=== PATIENT | male | born 1930 | race Caucasian/White ===

== ENCOUNTER 2017-04-14 23:12 | Emergency (ER) | payer OTHER ==
[2017-04-14 23:17] VITALS: BP 201/102; PULSE 111; TEMP 98.7; BMI 22.3
--- NOTE | 2017-04-14 23:54 | PDOC ---
History of Present Illness - General History Source: Patient, Family Exam Limitations: No Limitations - History of Present Illness Initial Comments: 04/14/17 23:58 The patient is an 86 year old male with no known medical history who presents to the ED with complaints of dysuria and hematuria that began yesterday. As per patient's family member, the patient had been experiencing hematuria a few months prior when he was advised to wear a diaper. However, the patient kept his diaper on for five days straight. It was only yesterday in which he expressed to his family member that he wasn't feeling well. He denies any fever or chills. The patient denies any urgency, hesitancy, frequency, or other urinary symptoms. The patient's family member states that the patient's blood pressure typically gets elevated when he sees doctors. The patient denies any chest pain or shortness of breath. <Tierra Gerber - Last Filed: 04/14/17 23:58> <Zaria Montes - Last Filed: 04/15/17 04:20> - General Chief Complaint: Urinary Problem Stated Complaint: BLOOD IN URINE/PAIN Time Seen by Provider: 04/14/17 23:24 Past History <Tierra Gerber - Last Filed: 04/14/17 23:58> - Past Medical History Other medical history: denies - Surgical History Abdominal Surgery: Yes (hernia) - Psycho/Social/Smoking Cessation Hx Suicidal Ideation: No Smoking History: Never smoked <Zaria Montes - Last Filed: 04/15/17 04:20> - Past Medical History Allergies/Adverse Reactions: Allergies Allergy/AdvReac Type Severity Reaction Status Date / Time No Known Allergies Allergy Verified 04/14/17 23:17 Review of Systems - Review of Systems Able to Perform ROS?: Yes Comments:: 04/15/17 00:04 GENERAL/CONSTITUTIONAL: No fever or chills. No weakness. HEAD, EYES, EARS, NOSE AND THROAT: No change in vision. No ear pain or discharge. No sore throat. CARDIOVASCULAR: No chest pain or shortness of breath. RESPIRATORY: No cough, wheezing, or hemoptysis. GASTROINTESTINAL: No nausea, vomiting, diarrhea or constipation. GENITOURINARY: Present: dysuria, hematuria No frequency. MUSCULOSKELETAL: No joint or muscle swelling or pain. No neck or back pain. SKIN: No rash NEUROLOGIC: No headache, vertigo, loss of consciousness, or change in strength/ sensation. ENDOCRINE: No increased thirst. No abnormal weight change. HEMATOLOGIC/LYMPHATIC: No anemia, easy bleeding, or history of blood clots. ALLERGIC/IMMUNOLOGIC: No hives or skin allergy. All Other Systems: Reviewed and Negative <Tierra Gerber - Last Filed: 04/14/17 23:58> *Physical Exam - Vital Signs Last Vital Signs Temp Pulse Resp BP Pulse Ox 98.7 F 111 H 20 201/102 99 04/14/17 23:14 04/14/17 23:14 04/14/17 23:14 04/14/17 23:14 04/14/17 23:14 - Physical Exam Comments: 04/15/17 00:04 GENERAL: Awake, alert, and fully oriented, in no acute distress HEAD: No signs of trauma exudates. Moist mucosa NECK: Normal ROM, supple, no lymphadenopathy, JVD, or masses LUNGS: Breath sounds equal, clear to auscultation bilaterally. No wheezes, and no crackles HEART: Regular rate and rhythm, normal S1 and S2, no murmurs, rubs or gallops ABDOMEN: Soft, nontender, normoactive bowel sounds. No guarding, no rebound. No masses NEUROLOGICAL: Cranial nerves II through XII grossly intact. SKIN: Warm, Dry, normal turgor, no rashes or lesions noted. <Tierra Gerber - Last Filed: 04/14/17 23:58> - Vital Signs Last Vital Signs Temp Pulse Resp BP Pulse Ox 98.7 F 111 H 20 201/102 99 04/14/17 23:14 04/14/17 23:14 04/14/17 23:14 04/14/17 23:14 04/14/17 23:14 <Zaria Montes - Last Filed: 04/15/17 04:20> Heart Score/ECG Review - ECG Impressions Comment:: EKG read 00:22- Sinus rhythm with 1st deg AV block, no acute ST/T changes <Zaria Montes - Last Filed: 04/15/17 04:20> Medical Decision Making - Medical Decision Making Patient presented with intermittent hematuria. No hematuria on exam of urine in ED. UA no signs of UTI. Recommended outpatient urology f/u for further workup. <Zaria Montes - Last Filed: 04/15/17 04:20> *DC/Admit/Observation/Transfer - Attestations Scribe Attestion: 04/15/17 00:06 Documentation prepared by Tierra Gerber, acting as medical van driver for Zaria Montes MD. <Tierra Gerber - Last Filed: 04/14/17 23:58> - Discharge Dispostion Admit: No <Zaria Montes - Last Filed: 04/15/17 04:20> Diagnosis at time of Disposition: Hematuria Qualifiers: Hematuria type: unspecified type Qualified Code(s): R31.9 - Hematuria, unspecified - Discharge Dispostion Disposition: HOME Condition at time of disposition: Stable - Patient Instructions Printed Discharge Instructions: DI for Hematuria Print Language: SUDANESE
[2017-04-15 00:18] LABS: URINE APPEARANCE CLEAR; URINE BILIRUBIN NEGATIVE (NEGATIVE); URINE COLOR COLORLESS; URINE GLUCOSE (UA) NEGATIVE (NEGATIVE); URINE KETONE NEGATIVE (NEGATIVE); URINE LEUK ESTERASE NEGATIVE (NEGATIVE); URINE NITRITE NEGATIVE (NEGATIVE); URINE UROBILINOGEN NEGATIVE mg/dL (0.2-1.0)
[2017-04-15 00:22] LABS: URINE BLOOD 2+ (NEGATIVE); URINE PROTEIN 2+ (NEGATIVE)
[2017-04-15 01:16] LABS: URINE RBC 12 /hpf (0-3); URINE WBC 4 /hpf (3-5)
--- NOTE | 2017-04-15 16:22 | EKG ---
Test Reason : Blood Pressure : / mmHG Vent. Rate : 096 BPM Atrial Rate : 096 BPM P-R Int : 212 ms QRS Dur : 086 ms QT Int : 334 ms P-R-T Axes : 020 -27 036 degrees QTc Int : 421 ms SINUS RHYTHM WITH 1ST DEGREE A-V BLOCK POSSIBLE LEFT ATRIAL ENLARGEMENT LEFT VENTRICULAR HYPERTROPHY ABNORMAL ECG NO PREVIOUS ECGS AVAILABLE [facility] Confirmed by TAMMY DASILVA MD ([id number] on 04/15/2017 4:22:29 PM Referred By: Confirmed By:TAMMY DASILVA MD
== END 2017-04-15 01:50 | disposition home or self-care (01) ==
LOC: JER 23:12
DX: R31.9 Hematuria, unspecified (principal)
CPT/HCPCS: 81003; 81015; 87086; 93005; 93010; 99282-25

== ENCOUNTER 2017-05-04 18:53 | Emergency (ER) | payer OTHER ==
[2017-05-04 19:09] VITALS: TEMP 98.7; BMI 23.9
--- NOTE | 2017-05-04 20:39 | PDOC ---
History of Present Illness - General Chief Complaint: Pain, Acute Stated Complaint: PAIN Time Seen by Provider: 05/04/17 20:39 History Source: Patient - History of Present Illness Initial Comments: 05/04/17 20:54 86 year old with no past medical history c/o redness and swelling to nose s/p insect bite x 6 days. denies fever, NVD abdominal pain, chest pain. no pmhx Past History - Past Medical History Allergies/Adverse Reactions: Allergies Allergy/AdvReac Type Severity Reaction Status Date / Time No Known Allergies Allergy Verified 05/04/17 19:03 Home Medications: Ambulatory Orders Cephalexin Monohydrate [Keflex -] 250 mg PO Q6H #40 capsule 05/04/17 Other medical history: dENIES - Surgical History Abdominal Surgery: Yes (hernia) - Immunization History Immunization Up to Date: Yes - Psycho/Social/Smoking Cessation Hx Suicidal Ideation: No Smoking History: Never smoked Have you smoked in the past 12 months: No Information on smoking cessation initiated: No Hx Alcohol Use: No Drug/Substance Use Hx: No Review of Systems - Review of Systems Able to Perform ROS?: Yes Is the patient limited Lithuanian proficient: No Constitutional: No: Symptoms Reported, See HPI, Chills, Diaphoresis, Fever, Loss of Appetite, Malaise, Night Sweats, Weakness, Weight Stable, Unintentional Wgt. Loss, Unexplained wgt Loss, Other Integumentary: Yes: Erythema (insect bite) *Physical Exam - Vital Signs Last Vital Signs Temp Pulse Resp BP Pulse Ox 98.7 F 103 H 17 166/89 95 05/04/17 19:03 05/04/17 19:03 05/04/17 19:03 05/04/17 19:03 05/04/17 19:03 - Physical Exam General Appearance: Yes: Appropriately Dressed Integumentary: positive: Normal Color, Erythema (redness and warmth with mild tenderness to left nare, ) Neurologic: positive: Fully Oriented, Alert, Normal Mood/Affect Medical Decision Making - Medical Decision Making 05/04/17 20:56 A: cellulitis P: cephalexin warm compress. wound check with pmd in 2 days *DC/Admit/Observation/Transfer Diagnosis at time of Disposition: Cellulitis and abscess of face - Discharge Dispostion Disposition: HOME - Prescriptions Prescriptions: Cephalexin Monohydrate [Keflex -] 250 mg PO Q6H #40 capsule - Patient Instructions Printed Discharge Instructions: Cellulitis Additional Instructions: warm compress to the area 4-5 times daily follow up with pmd in 1-2 days for worund check take cephalexin as prescribed.
[2017-05-04 20:56] VITALS: BP 148/73; PULSE 84
[2017-05-04] MEDS ORDERED: CEPHALEXIN MONOHYDRATE 250 MG CAPSULE (FP) ONE (20:58)
[2017-05-04] MEDS ORDERED: CEPHALEXIN MONOHYDRATE 500 MG CAPSULE (UD) PO ONE (21:00)
== END 2017-05-04 21:10 | disposition home or self-care (01) ==
LOC: JERFT 18:53 → JER 18:53
DX: L03.211 Cellulitis of face (principal); L02.01 Cutaneous abscess of face
CPT/HCPCS: 99281-25

== ENCOUNTER 2019-07-08 22:37 | Emergency (ER) | payer OTHER ==
[2019-07-08 22:51] VITALS: TEMP 98.8; BMI 22.1
--- NOTE | 2019-07-09 00:05 | PDOC ---
History of Present Illness - General Chief Complaint: Chest Pain Stated Complaint: COUGH/HEADACHE Time Seen by Provider: 07/09/19 00:02 - History of Present Illness Initial Comments: The pt is an 89M w/ no reported PMH who presents for evaluation of 1 week of cough. The pt reports a persistent intermittently productive cough, with chest pain that is only associated with the cough. He also reports a BENJAMIN that is gradual onset, pressure-like, associated with the cough, and is not associated with any sensory or vision changes. He has tried taking OTC tylenol, vitamins, fish oil w/o significant relief. 07/09/19 00:47 Past History - Past Medical History Allergies/Adverse Reactions: Allergies Allergy/AdvReac Type Severity Reaction Status Date / Time No Known Allergies Allergy Verified 07/08/19 22:45 Home Medications: Ambulatory Orders Cephalexin Monohydrate [Keflex -] 250 mg PO Q6H #40 capsule 05/04/17 Azithromycin [Zithromax 250mg Tablets -] 250 mg PO UTDICT #6 tab 07/09/19 COPD: No - Surgical History Abdominal Surgery: Yes (hernia) - Immunization History Immunization Up to Date: Yes - Psycho Social/Smoking Cessation Hx Smoking History: Never smoked Have you smoked in the past 12 months: No Information on smoking cessation initiated: No Hx Alcohol Use: No Drug/Substance Use Hx: No Review of Systems - Review of Systems Able to Perform ROS?: Yes Comments:: GENERAL/CONSTITUTIONAL: No fever or chills. No weakness HEAD, EYES, EARS, NOSE AND THROAT: No change in vision. No change in hearing CARDIOVASCULAR: No chest pain or shortness of breath RESPIRATORY: +cough; denies hemoptysis GASTROINTESTINAL: No nausea, vomiting, diarrhea or constipation GENITOURINARY: No dysuria, frequency, or change in urination MUSCULOSKELETAL: No joint or muscle swelling or pain. No neck pain SKIN: No rash NEUROLOGIC: No vertigo, loss of consciousness, or change in strength/sensation ENDOCRINE: No increased thirst. No abnormal weight change HEMATOLOGIC/LYMPHATIC: No anemia, easy bleeding, or history of blood clots ALLERGIC/IMMUNOLOGIC: No hives or skin allergy 07/09/19 00:05 Is the patient limited Emirati proficient: No *Physical Exam - Vital Signs Last Vital Signs Temp Pulse Resp BP Pulse Ox 98.8 F 112 H 16 189/99 H 92 L 07/08/19 22:46 07/08/19 22:46 07/08/19 22:46 07/08/19 22:46 07/08/19 22:46 - Physical Exam Comments: GENERAL: Awake, alert, and oriented to person/place/time, in no acute distress HEAD: No signs of trauma, normocephalic, atraumatic EYES: PERRLA, EOMI, sclera anicteric, conjunctiva clear ENT: Hearing grossly normal, nares patent, oropharynx clear without exudates. Moist mucosa LUNGS: No distress, speaks in full sentences, mild crackles RML/RLL HEART: Tachycardic rate with regular rhythm, normal S1 and S2, no murmurs appreciated, peripheral pulses normal and equal bilaterally ABDOMEN: Soft, nontender, normoactive bowel sounds. No guarding, no rebound EXTREMITIES: Normal inspection, Normal range of motion, no edema. No clubbing or cyanosis NEUROLOGICAL: Cranial nerves II through XII grossly intact. Normal speech, normal gait, no focal sensorimotor deficits SKIN: Warm, Dry 07/09/19 00:05 ED Treatment Course - LABORATORY CBC & Chemistry Diagram: 07/09/19 00:50 07/09/19 02:25 Medical Decision Making - Medical Decision Making The pt is an 89M w/ no reported PMH who presents for evaluation of 1 week of cough with associated chest pain and BENJAMIN ED Course CMP, CBC, Trop I CXR ECG Tylenol, Hurricane spray, and IVF for symptomatic relief 07/09/19 00:52 No leukocytosis No anemia Lytes unremarkable No KEVIN LFTs unremarkable Pt's HTN noted, per pt and family, pt has been evaluated for HTN and decision was made by Cardiology not to start anti-hypertensives. Pt to follow up with PCP and [employer] B[employer] Feeder. Pt w/o chest pain, SOB, BENJAMIN at time of discharge. Pt feels improved at this time CXR w/ some atelectasis, no focal infiltrate Will treat clinically given pt's age and symptoms Rx for Azithromycin sent to pt's pharmacy Discharge instructions and return precautions given Pt in agreement and verbalized understanding Dispo: home 07/09/19 04:17 Discharge - Discharge Information Problems reviewed: Yes Clinical Impression/Diagnosis: Cough, Viral syndrome Chest pain Qualifiers: Chest pain type: unspecified Qualified Code(s): R07.9 - Chest pain, unspecified Condition: Stable - Admission No - Additional Discharge Information Prescriptions: Azithromycin [Zithromax 250mg Tablets -] 250 mg PO UTDICT #6 tab - Follow up/Referral Referrals: Hardik Higgins [Primary Care Provider] - - Patient Discharge Instructions Patient Printed Discharge Instructions: DI for Viral Syndrome Additional Instructions: You were seen in the Emergency Department for evaluation of cough, chest pain, and headache. A prescription for Azithromycin was sent to your pharmacy. Take as directed. Review the handout provided at discharge. Follow up with your primary care provider within a week. For pain/fever you may take Tylenol 650mg every six hours. A humidifier may also help your respiratory symptoms. Lo vieron en el departamento de emergencias para evaluar la tos, el dolor en el pecho y el dolor de timothy. Se envi esmer receta de azitromicina a ruelas farmacia. Tmelo brandy se le indique. Revise el folleto proporcionado al nayely. Gareth un seguimiento con ruelas proveedor de atencin primaria dentro de esmer semana. Para el dolor / fiebre, puede marvin Tylenol 650 mg cada seis horas. Un humidificador tambin puede ayudar a katy sntomas respiratorios. Print Language: NICARAGUAN - Post Discharge Activity
--- NOTE | 2019-07-09 00:37 | PDOC ---
Attending Attestation - Resident Resident Name: Jasvir Mattaan - ED Attending Attestation I have performed the following: I have examined & evaluated the patient, The case was reviewed & discussed with the resident, I agree w/resident's findings & plan, Exceptions are as noted - HPI HPI: 07/09/19 00:36 Mr Holcomb is an 89 yo M presenting to the ER with a complaint of cough x 1 week Pt reports that his cough is intermittently productive He has tried over the counter medications with no improvement he notes chest pain ONLY when coughing Pt has had an intermittent headache, rhinorrhea 07/09/19 00:38 - Physicial Exam PE: 07/09/19 01:00 GENERAL: The patient is in no acute distress. ENT: Ears normal, nares patent, oropharynx clear without exudates. Moist mucous membranes. NECK: Normal range of motion, supple LUNGS: Breath sounds equal, clear to auscultation bilaterally. No wheezes, and no crackles. HEART:Regular rate and rhythm, NANCY grade 4/6 through out the precordium ABDOMEN: Soft, nontender, normoactive bowel sounds. EXTREMITIES: Normal range of motion, no edema. NEUROLOGICAL: Cranial nerves II through XII grossly intact. Normal speech. No focal neurological deficits. SKIN: Warm, Dry, normal turgor, no rashes or lesions noted. 07/09/19 20:13 - Medical Decision Making 07/09/19 01:00 89 yo M who reports no medical history presenting with 1 week of cough not improving with over the counter medication vitals notable for HE: 112, O2sat: 92% 07/09/19 02:09 Laboratory Tests 07/09/19 00:50 WBC 7.9 Hgb 14.6 Hct 44.4 Plt Count 223 BP remains elevated > 200/100 Given Norvasc Pt daughter states that he is very nervous at the doctor's office and his blood pressure becomes elevated He is followed by a roller mill tender [place] who has not started antihypertensives Pt states she feels better Will plan to discharge to home Follow up with PMD
[2019-07-09] MEDS ORDERED: SODIUM CHLORIDE 0.9% 500 ML INFUS.BAG IV ONE (00:38)
[2019-07-09] MEDS ORDERED: ACETAMINOPHEN 325 MG TABLET (FP) PO ONE (00:38)
[2019-07-09] MEDS ORDERED: MAG HYDROX/ALH/SMC/DPHA/LIDO 240 ML MOUTHWASH MM ONE (00:44)
[2019-07-09] MEDS ORDERED: ACETAMINOPHEN 325 MG TABLET (FP) ONE (00:44)
[2019-07-09 01:16] LABS: BASO % 1.1 % (0-2.0); EOS % 1.8 % (0-4.5); HEMATOCRIT 44.4 % (35.4-49); HEMOGLOBIN 14.6 GM/dL (11.7-16.9); LYMPH % 23.4 % (8-40); MCH 27.1 pg (25.7-33.7); MCHC 32.8 g/dl (32.0-35.9); MEAN CELL VOLUME 82.6 fl (80-96); MEAN PLT VOLUME 9.1 fl (7.5-11.1); MONO % 8.9 % (3.8-10.2); NEUT % 64.8 % (42.8-82.8); PLATELET COUNT 223 K/MM3 (134-434); RBC 5.38 M/mm3 (4.00-5.60); RDW 14.4 % (11.9-15.9); WHITE BLOOD COUNT 7.9 K/mm3 (4.0-10.0)
[2019-07-09] MEDS ORDERED: amLODIPine BESYLATE 5 MG TABLET (FP) PO ONE (01:31)
[2019-07-09] MEDS ORDERED: amLODIPine BESYLATE 5 MG TABLET (FP) ONE (01:32)
[2019-07-09 02:28] VITALS: BP 198/90; PULSE 94
[2019-07-09 03:32] LABS: ALBUMIN 2.7 g/dl (3.4-5.0); ALK PHOS 130 U/L (45-117); ANION GAP 3 MMOL/L (8-16); BILIRUBIN,TOTAL 0.4 mg/dL (0.2-1); BLOOD UREA NITROGEN 21.5 mg/dL (7-18); CALCIUM 7.7 mg/dL (8.5-10.1); CHLORIDE 114 mmol/L (98-107); CO2 25 mmol/L (21-32); CREATININE 0.8 mg/dL (0.55-1.3); GLUCOSE,RANDOM 114 mg/dL (74-106); POTASSIUM 4.2 mmol/L (3.5-5.1); SGOT/AST 39 U/L (15-37); SGPT/ALT 24 U/L (13-61); SODIUM 142 mmol/L (136-145); TOT PROT 6.1 g/dl (6.4-8.2)
[2019-07-09 04:40] LABS: N-TERMINAL BNP 377.5 pg/ml (5-450)
[2019-07-09] MEDS ORDERED: MAG HYDROX/ALH/SMC/DPHA/LIDO 240 ML MOUTHWASH MM SCH (06:00)
--- NOTE | 2019-07-09 14:28 | EKG ---
Test Reason : Blood Pressure : / mmHG Vent. Rate : 106 BPM Atrial Rate : 106 BPM P-R Int : 170 ms QRS Dur : 086 ms QT Int : 316 ms P-R-T Axes : 032 -25 067 degrees QTc Int : 419 ms SINUS TACHYCARDIA POSSIBLE LEFT ATRIAL ENLARGEMENT LEFT VENTRICULAR HYPERTROPHY INFERIOR INFARCT , AGE UNDETERMINED ANTERIOR INFARCT , AGE UNDETERMINED ABNORMAL ECG WHEN COMPARED WITH ECG OF 15-APR-2017 00:16, [place] INTERVAL HAS DECREASED Confirmed by JOSEPH ORTIZ MD ([id number]) on 07/09/2019 2:28:06 PM Referred By: Confirmed By:JOSEPH ORTIZ MD
--- NOTE | 2019-07-11 22:05 | EKG ---
Test Reason : Blood Pressure : / mmHG Vent. Rate : 105 BPM Atrial Rate : 105 BPM P-R Int : 178 ms QRS Dur : 082 ms QT Int : 326 ms P-R-T Axes : 032 -28 044 degrees QTc Int : 430 ms SINUS TACHYCARDIA VOLTAGE CRITERIA FOR LEFT VENTRICULAR HYPERTROPHY INFERIOR INFARCT (CITED ON OR BEFORE 08-JUL-2019) ABNORMAL ECG WHEN COMPARED WITH ECG OF 08-JUL-2019 22:47, NO SIGNIFICANT CHANGE WAS FOUND Confirmed by Nettie Sheldon ([id number]) on 07/11/2019 10:05:03 PM Referred By: Confirmed By:Nettie Sheldon
== END 2019-07-09 04:43 | disposition home or self-care (01) ==
LOC: JER 22:37
DX: B34.9 Viral infection, unspecified (principal); R05 Cough; I10 Essential (primary) hypertension
CPT/HCPCS: 36415; 71046-TC-FY; 80053; 82550; 83880; 84484; 85025; 87804; 93005; 93010; 99283-25